=== PATIENT | female | born 1960 | race Hispanic/Latino ===

== ENCOUNTER 2018-06-24 06:37 | Day surgery (SDC) | payer OTHER ==
[2018-06-21 10:53] VITALS: BP 146/82
[2018-06-21 10:55] LABS: APPEARANCE,URINE Clear (CLEAR); BILIRUBIN,URINE Negative (NEGATIVE); COLOR,URINE Yellow (YELLOW); GLUCOSE, URINE (UA) Negative (NEGATIVE); KETONES,URINE Negative (NEGATIVE); LEUKOCYTE ESTERASE ,URINE Negative (NEGATIVE); NITRATE,URINE Negative (NEGATIVE); OCCULT BLOOD,URINE Negative (NEGATIVE); PROTEIN,URINE Negative (NEGATIVE); UROBILINOGEN,URINE 0.2 mg/dL (0.2-1.0)
[2018-06-21 10:58] LABS: BASOPHILS % (AUTO) 0.6 % (0.0-5.0); EOSINOPHILS % (AUTO) 2.2 % (0.0-8.0); HEMATOCRIT 40.7 % (36-48); LYMPHOCYTES % (AUTO) 25.8 % (21.0-51.0); MEAN CORPUSCULAR HEMOGLOBIN 26.7 pg (27.0-33.0); MEAN CORPUSCULAR HGB CONC 32.2 g/dL (32.0-36.0); MEAN CORPUSCULAR VOLUME 82.9 fL (79-99); MONOCYTES % (AUTO) 8.7 % (3.0-13.0); NEUTROPHILS % (AUTO) 62.7 % (40.0-77.0); NUCLEATED RED BLOOD CELLS 0.1 % (0.0-0.19); PLATELET COUNT (AUTO) 240 K/uL (130-400); RED CELL DISTRIBUTION WIDTH 26.2 % (11.0-15.5); WHITE BLOOD COUNT (AUTO) 4.2 K/uL (4.8-10.8)
[2018-06-24] VITALS (13 sets, daily range): BP systolic 92–129; BP diastolic 57–73
[~2018-06-24] VITALS: Ht 154.9 cm; Wt 50.3 kg
[~2018-06-24 06:37] MED LIST: ESTR30GE2 TD; LACT1CAP77 PO; MULT-1258 PO
[2018-06-24] MEDS ORDERED: LACTATED RINGERS 1000ML 1,000 ML IV ONE (06:56)
[2018-06-24] MEDS ORDERED: CETI-101 PO (07:21)
[2018-06-24] MEDS ORDERED: DEXAMETHASONE SOD PHOSPHATE 10MG/ML 1ML VIAL ONE (08:15)
[2018-06-24] MEDS ORDERED: LIDOCAINE PF 2% 5ML ABBOJECT ONE (08:15)
[2018-06-24] MEDS ORDERED: ONDANSETRON HCL 4 MG/2 ML VIAL ONE (08:15)
[2018-06-24] MEDS ORDERED: MIDAZOLAM HCL 1 MG/ML 2ML VIAL ONE ×2 (08:16→08:18)
[2018-06-24] MEDS ORDERED: PROPOFOL 10 MG/ML 20ML VIAL IV ONE (08:16)
[2018-06-24] MEDS ORDERED: FENTANYL CITRATE PF 50 MCG/1 ML 2ML VIAL ONE (08:19)
[2018-06-24] MEDS ORDERED: ROCURONIUM 10MG/1ML SYR 10 MG/ML ML ONE (08:37)
[2018-06-24] MEDS ORDERED: BUPIVACAINE/PF 0.25% 30ML VIAL IJ ONE (08:46)
[2018-06-24] MEDS ORDERED: NEOSTIGMINE 5MG/5ML SYR IV ONE (09:06)
[2018-06-24] MEDS ORDERED: GLYCOPYRROLATE 1 MG/5 ML SYRINGE ONE (09:06)
== END 2018-06-24 10:47 | disposition home or self-care (01) ==
LOC: DAH 06:37
PROVIDERS: ATTEND Surgery
DX: K40.90 Unilateral inguinal hernia, without obstruction or gangrene, not specified as recurrent (principal); Z90.710 Acquired absence of both cervix and uterus; Z98.890 Other specified postprocedural states
CPT/HCPCS: 36415; 49505; 81003; 85025; A4450; A4452; J1100; J2001; J2250 ×2; J2405; J2704; J2710; J3010; J3490 ×2; J7120

== ENCOUNTER 2018-07-13 19:18 | Emergency (ER) | payer OTHER ==
[~2018-07-13 19:18] MED LIST changes: +CETI-101 PO
[2018-07-13] MEDS ORDERED: FAMOTIDINE 20MG TAB 20 MG TAB ONE (19:53)
[2018-07-13] MEDS ORDERED: DEXAMETHASONE SOD PHOSPHATE 10MG/ML 1ML VIAL ONE (19:53)
[2018-07-13] MEDS ORDERED: DIPHENHYDRAMINE HCL 25 MG CAPSULE ONE (19:53)
== END 2018-07-13 20:42 | disposition home or self-care (01) ==
LOC: EDH 19:18
DX: L50.9 Urticaria, unspecified (principal)
CPT/HCPCS: 96372; 99283; J1100; Q0163

== ENCOUNTER 2020-01-22 21:03 | Emergency (ER) | payer OTHER ==
[~2020-01-22 21:03] MED LIST changes: -CETI-101 PO; +CETI-109 PO
[2020-01-22 21:43] LABS: APPEARANCE,URINE Clear (CLEAR); BILIRUBIN,URINE Negative (NEGATIVE); COLOR,URINE Yellow (YELLOW); GLUCOSE, URINE (UA) Negative (NEGATIVE); KETONES,URINE Negative (NEGATIVE); LEUKOCYTE ESTERASE ,URINE Negative (NEGATIVE); NITRATE,URINE Negative (NEGATIVE); OCCULT BLOOD,URINE Negative (NEGATIVE); PH,URINE 6.5 (5.0-8.0); PROTEIN,URINE Negative (NEGATIVE); UROBILINOGEN,URINE 0.2 mg/dL (0.2-1.0)
[2020-01-22 21:47] LABS: BASOPHILS % (AUTO) 0.7 % (0.0-5.0); EOSINOPHILS % (AUTO) 3.6 % (0.0-8.0); HEMATOCRIT 44.9 % (36-48); MEAN CORPUSCULAR HEMOGLOBIN 29.1 pg (27.0-33.0); MEAN CORPUSCULAR HGB CONC 33.9 g/dL (32.0-36.0); MEAN CORPUSCULAR VOLUME 85.9 fL (79-99); MONOCYTES % (AUTO) 13.6 % (3.0-13.0); NEUTROPHILS % (AUTO) 53.9 % (40.0-77.0); PLATELET COUNT (AUTO) 249 K/uL (130-400); RED BLOOD CELL COUNT(AUTO) 5.23 MIL/uL (4.00-5.50); RED CELL DISTRIBUTION WIDTH 14.2 % (11.0-15.5); WHITE BLOOD COUNT (AUTO) 4.5 K/uL (4.8-10.8)
[2020-01-22 21:58] LABS: INR 1.03 (0.85-1.15); PARTIAL THROMBOPLASTIN TIME 28.2 SEC (26.3-35.5); PROTHROMBIN TIME 11.1 SEC (9.6-11.6)
[2020-01-22 22:02] LABS: POTASSIUM 3.9 mmol/L (3.5-5.1)
[2020-01-22 22:07] LABS: ALBUMIN 3.8 g/dL (3.5-5.0); BILIRUBIN,TOTAL 0.5 mg/dL (0.2-1.0); TOTAL PROTEIN, SERUM 7.9 g/dL (6.0-8.3)
[2020-01-22] MEDS ORDERED: FAMOTIDINE 20MG TAB 20 MG TAB ONE (22:14)
== END 2020-01-22 22:32 | disposition home or self-care (01) ==
LOC: EDH 21:03
DX: K85.90 Acute pancreatitis without necrosis or infection, unspecified (principal); R25.1 Tremor, unspecified; R03.0 Elevated blood-pressure reading, without diagnosis of hypertension; M19.90 Unspecified osteoarthritis, unspecified site
CPT/HCPCS: 36415; 80053; 81003; 82150; 82550; 83690; 85025; 85610; 85730; 93005

== ENCOUNTER 2020-10-04 10:32 | Emergency (ER) | payer OTHER ==
[~2020-10-04 10:32] MED LIST changes: -CETI-109 PO; +CETI-89 PO
[2020-10-04 11:09] LABS: BASOPHILS % (AUTO) 0.5 % (0.0-5.0); EOSINOPHILS % (AUTO) 0.7 % (0.0-8.0); HEMATOCRIT 44.9 % (36-48); LYMPHOCYTES % (AUTO) 15.3 % (21.0-51.0); MEAN CORPUSCULAR HEMOGLOBIN 30.5 pg (27.0-33.0); MEAN CORPUSCULAR HGB CONC 34.1 g/dL (32.0-36.0); MEAN CORPUSCULAR VOLUME 89.6 fL (79-99); MONOCYTES % (AUTO) 7.8 % (3.0-13.0); NEUTROPHILS % (AUTO) 75.2 % (40.0-77.0); PLATELET COUNT (AUTO) 274 K/uL (130-400); RED BLOOD CELL COUNT(AUTO) 5.01 MIL/uL (4.00-5.50); RED CELL DISTRIBUTION WIDTH 13.1 % (11.0-15.5); WHITE BLOOD COUNT (AUTO) 5.5 K/uL (4.8-10.8)
[2020-10-04 11:16] LABS: CREATININE 0.8 mg/dL (0.5-1.5); POTASSIUM 3.7 mmol/L (3.5-5.1)
[2020-10-04 11:20] LABS: ALBUMIN 3.8 g/dL (3.5-5.0); BILIRUBIN,TOTAL 0.6 mg/dL (0.2-1.0); TOTAL PROTEIN, SERUM 8.4 g/dL (6.0-8.3)
[2020-10-04] MEDS ORDERED: MECLIZINE HCL 25 MG TABLET ONE (12:11)
== END 2020-10-04 15:02 | disposition home or self-care (01) ==
LOC: EDH 10:32
DX: R42 Dizziness and giddiness (principal); M19.90 Unspecified osteoarthritis, unspecified site; Z90.49 Acquired absence of other specified parts of digestive tract; Z90.710 Acquired absence of both cervix and uterus
CPT/HCPCS: 36415; 70450; 71045; 80053; 82948; 84484; 85025; 93005

== ENCOUNTER 2021-02-10 04:40 | Emergency (ER) | payer BC, OTHER ==
[2021-02-10 04:54] LABS: APPEARANCE,URINE Clear (CLEAR); BILIRUBIN,URINE Negative (NEGATIVE); COLOR,URINE Yellow (YELLOW); GLUCOSE, URINE (UA) Negative (NEGATIVE); KETONES,URINE Trace mg/dL (NEGATIVE); LEUKOCYTE ESTERASE ,URINE Negative (NEGATIVE); NITRATE,URINE Negative (NEGATIVE); OCCULT BLOOD,URINE Negative (NEGATIVE); PROTEIN,URINE Negative (NEGATIVE); UROBILINOGEN,URINE 0.2 mg/dL (0.2-1.0)
[2021-02-10] MEDS ORDERED: HYDROXYZINE HCL 25 MG TABLET ONE (05:48)
== END 2021-02-10 06:41 | disposition home or self-care (01) ==
LOC: EDH 04:40
DX: F41.8 Other specified anxiety disorders (principal); R10.30 Lower abdominal pain, unspecified; R19.7 Diarrhea, unspecified; M19.90 Unspecified osteoarthritis, unspecified site; Z90.710 Acquired absence of both cervix and uterus
CPT/HCPCS: 81003

== ENCOUNTER 2021-06-23 05:26 | Emergency (ER) | payer BC ==
[~2021-06-23] VITALS: Ht 149.9 cm; Wt 51.7 kg
[2021-06-23] MEDS ORDERED: ONDANSETRON 4MG INJ ONE (06:48)
[2021-06-23] MEDS ORDERED: PANTOPRAZOLE 40 MG/VIAL ONE (06:48)
[2021-06-23] MEDS ORDERED: FAMOTIDINE 20MG VIAL IV ONE (06:48)
[2021-06-23 07:00] LABS: BASOPHILS % (AUTO) 0.3 % (0.0-5.0); EOSINOPHILS % (AUTO) 0.9 % (0.0-8.0); HEMATOCRIT 42.3 % (36-48); LYMPHOCYTES % (AUTO) 17.5 % (21.0-51.0); MEAN CORPUSCULAR HEMOGLOBIN 30.2 pg (27.0-33.0); MEAN CORPUSCULAR HGB CONC 32.6 g/dL (32.0-36.0); MEAN CORPUSCULAR VOLUME 92.6 fL (79-99); MONOCYTES % (AUTO) 8.3 % (3.0-13.0); NEUTROPHILS % (AUTO) 72.4 % (40.0-77.0); PLATELET COUNT (AUTO) 287 K/uL (130-400); RED BLOOD CELL COUNT(AUTO) 4.57 MIL/uL (4.00-5.50); WHITE BLOOD COUNT (AUTO) 3.3 K/uL (4.8-10.8)
[2021-06-23] MEDS ORDERED: ONDANSETRON 4MG INJ IVP SCH (07:06)
[2021-06-23] MEDS ORDERED: 0.9%NACL 1000ML 1,000 ML IV SCH (07:06)
[2021-06-23] MEDS ORDERED: PANTOPRAZOLE 40 MG/VIAL IVP SCH (07:06)
[2021-06-23] MEDS ORDERED: 0.9%NACL 1000ML 1,000 ML IV ONE (07:06)
[2021-06-23 07:07] LABS: CREATININE 0.8 mg/dL (0.5-1.5); POTASSIUM 4.2 mmol/L (3.5-5.1)
[2021-06-23] MEDS ORDERED: FAMOTIDINE 20MG VIAL IV SCH (07:07)
[2021-06-23 07:11] LABS: ALBUMIN 3.7 g/dL (3.5-5.0); BILIRUBIN,TOTAL 0.4 mg/dL (0.2-1.0)
[2021-06-23] MEDS ORDERED: PANT40TA PO (07:56)
[2021-06-23] MEDS ORDERED: ONDA4TAB10 PO (07:56)
[2021-06-23] MEDS ORDERED: METO-296 PO (07:56)
[2021-06-23] MEDS ORDERED: DICY20TA2 PO (07:56)
[2021-06-23 07:57] VITALS: BP 125/70
== END 2021-06-23 08:09 | disposition home or self-care (01) ==
LOC: EDH 05:26
DX: K29.70 Gastritis, unspecified, without bleeding (principal); E86.9 Volume depletion, unspecified; Z79.899 Other long term (current) drug therapy
CPT/HCPCS: 36415; 80053; 83690; 84484; 85025; 93005; 96361; 96374; 96375; 99284; C9113; J2405; J7030; J3490

== ENCOUNTER 2021-07-19 14:09 | Observation (INO) | payer BC ==
[~2021-07-19] VITALS: Ht 149.9 cm; Wt 44.7 kg
[~2021-07-19 14:09] MED LIST changes: +DICY20TA2 PO; +METO-296 PO; +ONDA4TAB10 PO; +PANT40TA PO
[2021-07-19 14:41] LABS: BASOPHILS % (AUTO) 0.4 % (0.0-5.0); EOSINOPHILS % (AUTO) 1.2 % (0.0-8.0); HEMATOCRIT 41.4 % (36-48); LYMPHOCYTES % (AUTO) 20.5 % (21.0-51.0); MEAN CORPUSCULAR HEMOGLOBIN 30.5 pg (27.0-33.0); MEAN CORPUSCULAR HGB CONC 33.1 g/dL (32.0-36.0); MEAN CORPUSCULAR VOLUME 92.2 fL (79-99); NEUTROPHILS % (AUTO) 66.7 % (40.0-77.0); PLATELET COUNT (AUTO) 252 K/uL (130-400); RED BLOOD CELL COUNT(AUTO) 4.49 MIL/uL (4.00-5.50); RED CELL DISTRIBUTION WIDTH 12.6 % (11.0-15.5); WHITE BLOOD COUNT (AUTO) 4.8 K/uL (4.8-10.8)
[2021-07-19 14:46] LABS: APPEARANCE,URINE Clear (CLEAR); BILIRUBIN,URINE Negative (NEGATIVE); COLOR,URINE Yellow (YELLOW); GLUCOSE, URINE (UA) Negative (NEGATIVE); KETONES,URINE Negative (NEGATIVE); LEUKOCYTE ESTERASE ,URINE Negative (NEGATIVE); NITRATE,URINE Negative (NEGATIVE); OCCULT BLOOD,URINE Negative (NEGATIVE); PROTEIN,URINE Negative (NEGATIVE); UROBILINOGEN,URINE 0.2 mg/dL (0.2-1.0)
[2021-07-19 14:57] LABS: CARBON DIOXIDE 33 mmol/L (21-32); CHLORIDE 102 mmol/L (101-111); CREATININE 0.9 mg/dL (0.5-1.5); GLOMERULAR FILTR. RATE CALC 67 mL/min (>60); GLUCOSE,RANDOM 95 mg/dL (70-105); POTASSIUM 3.4 mmol/L (3.5-5.1); SODIUM SERUM 141 mmol/L (136-145); UREA NITROGEN, BLOOD 16 mg/dL (7-18)
[2021-07-19 15:01] LABS: ALANINE AMINOTRANSFERASE 42 U/L (12-78); ALBUMIN 3.9 g/dL (3.5-5.0); ASPARTATE AMINOTRANSFERASE 39 U/L (10-37); BILIRUBIN,TOTAL 0.4 mg/dL (0.2-1.0); TOTAL PROTEIN, SERUM 8.4 g/dL (6.0-8.3)
[2021-07-19 15:05] LABS: CRP QUANTITATIVE < 2.00 mg/L (0.00-9.0)
[2021-07-19 15:11] LABS: B-TYPE NATRIURETIC PEPTIDE 23 pg/mL (0-100)
[2021-07-19] MEDS ORDERED: POTASSIUM BICARB/CIT AC 25 MEQ TABLET.EFF ONE (15:13)
[2021-07-19] MEDS ORDERED: LORAZEPAM 1 MG TABLET ONE (15:23)
[2021-07-19] MEDS ORDERED: LORAZEPAM 2 MG/ML 1 ML VIAL IVP ONE (15:30)
[2021-07-19] MEDS ORDERED: LORAZEPAM 1 MG TABLET PO ONE (16:55)
[2021-07-19] MEDS ORDERED: POTASSIUM BICARB/CIT AC 25 MEQ TABLET.EFF PO ONE (16:55)
[2021-07-19] MEDS ORDERED: ONDANSETRON 4MG TABLET PO PRN (18:00)
[2021-07-19] MEDS ORDERED: ACETAMINOPHEN 325 MG TAB PO PRN (18:00)
[2021-07-20] VITALS (9 sets, daily range): BP systolic 104–142; BP diastolic 63–82
[2021-07-20] MEDS ORDERED: ESTR30GE2 TD (01:00)
[2021-07-20 07:55] LABS: BASOPHILS % (AUTO) 0.5 % (0.0-5.0); EOSINOPHILS % (AUTO) 2.2 % (0.0-8.0); HEMATOCRIT 41.9 % (36-48); LYMPHOCYTES % (AUTO) 24.5 % (21.0-51.0); MEAN CORPUSCULAR HEMOGLOBIN 30.8 pg (27.0-33.0); MEAN CORPUSCULAR HGB CONC 33.4 g/dL (32.0-36.0); MEAN CORPUSCULAR VOLUME 92.1 fL (79-99); MONOCYTES % (AUTO) 10.9 % (3.0-13.0); NEUTROPHILS % (AUTO) 61.6 % (40.0-77.0); PLATELET COUNT (AUTO) 251 K/uL (130-400); RED BLOOD CELL COUNT(AUTO) 4.55 MIL/uL (4.00-5.50); RED CELL DISTRIBUTION WIDTH 12.8 % (11.0-15.5); WHITE BLOOD COUNT (AUTO) 3.7 K/uL (4.8-10.8)
[2021-07-20 08:38] LABS: CREATININE 0.8 mg/dL (0.5-1.5); MAGNESIUM 2.1 mg/dL (1.80-2.40); POTASSIUM 4.5 mmol/L (3.5-5.1)
[2021-07-20] MEDS ORDERED: GADOTERATE MEGLUMINE 5 MMOL/10 ML VIAL IV ONE (12:22)
[2021-07-20] MEDS ORDERED: ALPRAZOLAM 0.5 MG TABLET PO PRN (17:00)
[2021-07-21] VITALS: BP 110/74
[2021-07-21 05:23] LABS: HEMATOCRIT 39.7 % (36-48); MEAN CORPUSCULAR HEMOGLOBIN 30.3 pg (27.0-33.0); MEAN CORPUSCULAR HGB CONC 33.2 g/dL (32.0-36.0); MEAN CORPUSCULAR VOLUME 91.3 fL (79-99); RED BLOOD CELL COUNT(AUTO) 4.35 MIL/uL (4.00-5.50); RED CELL DISTRIBUTION WIDTH 12.7 % (11.0-15.5); WHITE BLOOD COUNT (AUTO) 3.8 K/uL (4.8-10.8)
[2021-07-21 05:31] LABS: CREATININE 0.8 mg/dL (0.5-1.5); MAGNESIUM 1.8 mg/dL (1.80-2.40); POTASSIUM 3.9 mmol/L (3.5-5.1)
[2021-07-21] MEDS ORDERED: DIPHENHYDRAMINE HCL 25 MG CAPSULE PO SCH (09:00)
[2021-07-21 09:05] VITALS: BP 110/70
[2021-07-21 11:13] VITALS: BP 106/67
== END 2021-07-21 14:23 | disposition home or self-care (01) ==
LOC: EDH 14:09 → EDHIP 16:25 → INTOOBSV 16:25 → 3BH 07-20 06:26
PROVIDERS: ADMIT Internal Medicine Infectious Disease; ATTEND Internal Medicine Infectious Disease
DX: I10 Essential (primary) hypertension (principal); R42 Dizziness and giddiness; E87.6 Hypokalemia; R53.81 Other malaise; Z90.710 Acquired absence of both cervix and uterus; Z79.899 Other long term (current) drug therapy; Z98.890 Other specified postprocedural states
CPT/HCPCS: 36415 ×3; 70450; 70544; 70547; 70553; 71045; 80048 ×2; 80053; 81003; 83735 ×2; 83880; 84484; 85025 ×2; 85027; 86140; 93005; 97039; 97116; 97161; 99285; A9575; G0378; Q0163

== ENCOUNTER 2022-03-22 05:58 | Emergency (ER) | payer BC ==
[~2022-03-22] VITALS: Ht 149.9 cm; Wt 46.3 kg
[~2022-03-22 05:58] MED LIST changes: -DICY20TA2 PO; -LACT1CAP77 PO; -METO-296 PO; -ONDA4TAB10 PO; -PANT40TA PO
[2022-03-22 06:46] VITALS: BP 124/60
[2022-03-22 06:51] LABS: BASOPHILS % (AUTO) 0.2 % (0.0-5.0); EOSINOPHILS % (AUTO) 0.3 % (0.0-8.0); HEMATOCRIT 45.2 % (36-48); LYMPHOCYTES % (AUTO) 5.5 % (21.0-51.0); MEAN CORPUSCULAR HEMOGLOBIN 30.2 pg (27.0-33.0); MEAN CORPUSCULAR HGB CONC 33.2 g/dL (32.0-36.0); MEAN CORPUSCULAR VOLUME 90.9 fL (79-99); NEUTROPHILS % (AUTO) 88.7 % (40.0-77.0); PLATELET COUNT (AUTO) 261 K/uL (130-400); RED BLOOD CELL COUNT(AUTO) 4.97 MIL/uL (4.00-5.50); WHITE BLOOD COUNT (AUTO) 11.8 K/uL (4.8-10.8)
[2022-03-22 06:57] LABS: APPEARANCE,URINE CLEAR (CLEAR); BILIRUBIN,URINE NEGATIVE (NEGATIVE); COLOR,URINE YELLOW (YELLOW); GLUCOSE, URINE (UA) NEGATIVE (NEGATIVE); KETONES,URINE NEGATIVE (NEGATIVE); LEUKOCYTE ESTERASE ,URINE NEGATIVE (NEGATIVE); NITRATE,URINE NEGATIVE (NEGATIVE); OCCULT BLOOD,URINE NEGATIVE (NEGATIVE); PROTEIN,URINE NEGATIVE (NEGATIVE); UROBILINOGEN,URINE 0.2 mg/dL (0.2-1.0)
[2022-03-22] MEDS ORDERED: 0.9%NACL 1000ML 1,000 ML IV SCH (07:00)
[2022-03-22] MEDS ORDERED: ONDANSETRON 4MG INJ IVP ONE (07:00)
[2022-03-22 07:08] LABS: ALBUMIN 3.9 g/dL (3.5-5.0); CREATININE 0.8 mg/dL (0.5-1.5); POTASSIUM 4.2 mmol/L (3.5-5.1)
[2022-03-22] MEDS ORDERED: ONDA-104 PO (08:44)
[2022-03-22] MEDS ORDERED: LOPE2CAP PO (08:44)
== END 2022-03-22 08:51 | disposition home or self-care (01) ==
LOC: EDH 05:58
DX: E86.9 Volume depletion, unspecified (principal); R19.7 Diarrhea, unspecified; R10.9 Unspecified abdominal pain
CPT/HCPCS: 99284; 96374; 80053; 83690; 85025; 81003; 36415; J7030; J2405

== ENCOUNTER 2023-02-27 23:13 | Emergency (ER) | payer BC ==
[~2023-02-27] VITALS: Ht 149.9 cm; Wt 47.2 kg
[~2023-02-27 23:13] MED LIST changes: +LOPE2CAP PO; +ONDA-104 PO
[2023-02-28] MEDS ORDERED: DIPHENOXYLATE HCL/ATROPINE 2.5/0.025 MG TAB PO ONE
[2023-02-28 00:42] VITALS: BP 105/60
[2023-02-28] MEDS ORDERED: DIPH1TAB PO (00:43)
== END 2023-02-28 00:54 | disposition home or self-care (01) ==
LOC: EDH 23:13
DX: R19.7 Diarrhea, unspecified (principal)

== ENCOUNTER → 2024-01-29 | Outpatient (CLI) | payer OTHER ==
[~2024-01-29] MED LIST changes: +DIPH1TAB PO
== END | disposition home or self-care (01) ==
LOC: OIH 08:17
PROVIDERS: ATTEND Family Medicine
DX: Z13.6 Encounter for screening for cardiovascular disorders (principal)
CPT/HCPCS: 75571

== ENCOUNTER 2024-03-29 02:34 | Emergency (ER) | payer BC, OTHER ==
[~2024-03-29] VITALS: Ht 149.9 cm; Wt 49.4 kg
[2024-03-29 04:10] LABS: BASOPHILS # (AUTO) 0.05 K/uL (0.00-0.20); BASOPHILS % (AUTO) 1.1 % (0.0-5.0); EOSINOPHILS # (AUTO) 0.24 K/uL (0.00-0.70); EOSINOPHILS % (AUTO) 5.1 % (0.0-8.0); HEMATOCRIT 41.6 % (36-48); IMMATURE GRANULOCYTE ABSOLUTE 0.02 K/uL (0-1); LYMPHOCYTES # (AUTO) 0.8 K/uL (1.0-4.8); LYMPHOCYTES % (AUTO) 16.9 % (21.0-51.0); MEAN CORPUSCULAR HEMOGLOBIN 30.2 pg (27.0-33.0); MEAN CORPUSCULAR HGB CONC 33.4 g/dL (32.0-36.0); MEAN CORPUSCULAR VOLUME 90.2 fL (79-99); MONOCYTES # (AUTO) 0.5 K/uL (0.1-1.0); MONOCYTES % (AUTO) 9.5 % (3.0-13.0); NEUTROPHILS # (AUTO) 3.2 K/uL (1.8-7.7); PLATELET COUNT (AUTO) 281 K/uL (130-400); RED BLOOD CELL COUNT(AUTO) 4.61 MIL/uL (4.00-5.50); RED CELL DISTRIBUTION WIDTH 13.4 % (11.0-15.5); WHITE BLOOD COUNT (AUTO) 4.7 K/uL (4.8-10.8)
[2024-03-29 04:22] LABS: CREATININE 0.7 mg/dL (0.5-1.0); POTASSIUM 3.8 mmol/L (3.5-5.1)
[2024-03-29 04:27] LABS: ALBUMIN 3.5 g/dL (3.5-5.0); BILIRUBIN,TOTAL 0.6 mg/dL (0.2-1.0); TOTAL PROTEIN, SERUM 7.7 g/dL (6.0-8.3)
[2024-03-29 05:18] VITALS: BP 118/72; PULSE 64; RESP 16; O2SAT 99
== END 2024-03-29 05:32 | disposition home or self-care (01) ==
LOC: EDH 02:34
DX: K08.89 Other specified disorders of teeth and supporting structures (principal); Z79.899 Other long term (current) drug therapy; Z98.890 Other specified postprocedural states
CPT/HCPCS: 36415; 70220; 80053; 85025

== ENCOUNTER 2024-06-15 21:08 | Emergency (ER) | payer BC, OTHER ==
[~2024-06-15] VITALS: Ht 149.9 cm; Wt 49.9 kg
[2024-06-15] MEDS ORDERED: DICL20GE TP (21:44)
[2024-06-15 21:51] VITALS: BP 142/70; PULSE 70; RESP 16; TEMP 98.3; O2SAT 98
[2024-06-15] MEDS: NAPROXEN 500 MG TABLET PO ONE (22:00)
== END 2024-06-15 22:05 | disposition home or self-care (01) ==
LOC: EDH 21:08
DX: S86.912A Strain of unspecified muscle(s) and tendon(s) at lower leg level, left leg, initial encounter (principal); Z79.899 Other long term (current) drug therapy; Z98.890 Other specified postprocedural states; X58.XXXA Exposure to other specified factors, initial encounter; Y93.89 Activity, other specified; Y92.89 Other specified places as the place of occurrence of the external cause; Y99.8 Other external cause status
CPT/HCPCS: 29505; 73562

== ENCOUNTER 2024-07-06 22:02 | Emergency (ER) | payer OTHER ==
[~2024-07-06] VITALS: Ht 149.9 cm; Wt 50.8 kg
[~2024-07-06 22:02] MED LIST changes: +DICL20GE TP
[2024-07-06 22:13] VITALS: TEMP 98.4
[2024-07-06 22:25] LABS: APPEARANCE,URINE CLEAR (CLEAR); BILIRUBIN,URINE NEGATIVE (NEGATIVE); COLOR,URINE LIGHT-YELLOW (YELLOW); GLUCOSE, URINE (UA) NEGATIVE (NEGATIVE); KETONES,URINE NEGATIVE (NEGATIVE); LEUKOCYTE ESTERASE ,URINE NEGATIVE Leu/uL (NEGATIVE); NITRATE,URINE NEGATIVE (NEGATIVE); OCCULT BLOOD,URINE NEGATIVE (NEGATIVE); PH,URINE 7.5 (5.0-8.0); PROTEIN,URINE NEGATIVE (NEGATIVE); UROBILINOGEN,URINE 0.2 mg/dL (0.2-1.0)
[2024-07-06] MEDS: ondanSETRON 4MG INJ IVP ONE (22:26)
[2024-07-06] MEDS: ketOROlac 30MG VIAL (30MG/ML) IVP ONE (22:26)
[2024-07-06] MEDS: FAMOTIDINE 20MG VIAL IV ONE (22:27)
[2024-07-06 22:35] LABS: ADD UA MICROSCOPIC NO
[2024-07-06 22:44] LABS: BASOPHILS # (AUTO) 0.02 K/uL (0.00-0.20); BASOPHILS % (AUTO) 0.2 % (0.0-5.0); EOSINOPHILS # (AUTO) 0.17 K/uL (0.00-0.70); EOSINOPHILS % (AUTO) 1.9 % (0.0-8.0); HEMATOCRIT 39.1 % (36-48); IMMATURE GRANULOCYTE ABSOLUTE 0.04 K/uL (0-1); LYMPHOCYTES % (AUTO) 10.8 % (21.0-51.0); MEAN CORPUSCULAR HGB CONC 34.5 g/dL (32.0-36.0); MEAN CORPUSCULAR VOLUME 89.9 fL (79-99); MONOCYTES # (AUTO) 0.6 K/uL (0.1-1.0); MONOCYTES % (AUTO) 6.9 % (3.0-13.0); NEUTROPHILS # (AUTO) 7.1 K/uL (1.8-7.7); NEUTROPHILS % (AUTO) 79.7 % (40.0-77.0); PLATELET COUNT (AUTO) 296 K/uL (130-400); RED BLOOD CELL COUNT(AUTO) 4.35 MIL/uL (4.00-5.50); RED CELL DISTRIBUTION WIDTH 12.7 % (11.0-15.5); WHITE BLOOD COUNT (AUTO) 8.9 K/uL (4.8-10.8)
[2024-07-06 22:53] LABS: CREATININE 0.8 mg/dL (0.5-1.0); POTASSIUM 3.5 mmol/L (3.5-5.1)
[2024-07-06] MEDS: 0.9%NACL 1000ML 1,000 ML IV ONE (23:17)
[2024-07-06 23:33] VITALS: BP 124/68; PULSE 62; RESP 18; O2SAT 100
== END 2024-07-06 23:33 | disposition home or self-care (01) ==
LOC: EDH 22:02
DX: A08.4 Viral intestinal infection, unspecified (principal); R19.7 Diarrhea, unspecified; Z79.1 Long term (current) use of non-steroidal anti-inflammatories (NSAID); Z98.890 Other specified postprocedural states
CPT/HCPCS: 99284; 96374; 96375; 80048; 85025; 81003; 36415; J3490; J7030; J2405; J1885

== ENCOUNTER 2025-06-30 08:18 | Emergency (ER) | payer OTHER ==
[~2025-06-30] VITALS: Ht 149.9 cm; Wt 46.7 kg
[2025-06-30] MEDS ORDERED: NAPR-1196 PO (10:10)
--- NOTE | 2025-06-30 10:10 | ERN ---
ED Note History of Present Illness Stated Complaint: RT SHOULDER Chief Complaint: Shoulder Injury/Pain Time Seen by MD: 08:34 Dictation: 65-year-old female with right shoulder pain worse with range of motion chronic over the past few months worsening these past few weeks. Patient does weight training but no obvious injury noted Allergies: Coded Allergies: No Known Allergies (Unverified Allergy, 03/10/13) Home Meds Active Scripts Diclofenac Sodium (Voltaren Arthritis Pain) 1 % Gel..gram., 20 GM TP BID for 10 Days, #1 TUBE Prov:LANA SLOAN MD 06/15/24 Diphenoxylate HCl/Atropine (Lomotil Tablet) 1 Each Tablet, 1 TAB PO Q6HPRN PRN for DIARRHEA for 5 Days, #10 TAB 0 Refills Prov:SUDHIR BLACK MD 02/28/23 Ondansetron HCl (Ondansetron HCl) 4 Mg Tablet, 4 MG PO TID, #15 TAB Prov:PARAS CAMPOS MD 03/22/22 Loperamide HCl (Loperamide) 2 Mg Capsule, 2 MG PO QID, #30 CAP Prov:PARAS CAMPOS MD 03/22/22 Reported Medications Estradiol (Divigel) 1 Gm Gel.packet, 1 GM TD HS 07/20/21 Cetirizine HCl (Zyrtec) 10 Mg Tablet, 10 MG PO AD, TAB 06/24/18 Multivits-Min/FA/Lycopene/Lut (Centrum Silver Tablet) 1 Each Tablet, 1 EACH PO DAILY, TAB 06/21/18 Past Medical History Past Medical History: No Pertinent History Additional Past Medical Hx: HEMORRHOIDS Surgical History: None Surgical History Other: HERNIA REPAIR X 2 Social History: Negative, Lives with family History: Not Applicable Review of System Dictation Constitutional: Negative for fever,chills, and weight loss Eyes: Negative for injury, pain,redness, and discharge ENT: Negative for injury,pain or swelling Cardiovascular: Negative for chest pain, palpitations, and edema Respiratory: Negative for shortness of breath, cough, and wheezing, Abdomen/GI: Negative for abdominal pain, nausea, vomiting, diarrhea, and constipation Back: Negative for injury and pain : Negative for injury, bleeding and discharge MS/Extremity: Per HPI Skin: Negative for rash, and discoloration Neuro: Negative for headache, weakness, numbness, tingling, and seizure Psych: Negative for suicide ideation, homicidal ideation, and hallucinations Initial Vital Sign VS Vital Signs Date Time Temp Pulse Resp B/P (MAP) Pulse Ox O2 Delivery O2 Flow Rate FiO2 06/30/25 08:20 97.9 75 20 129/69 98 Physical Exam Dictation General: awake, alert, NAD Head/Face: Normocephalic, atraumatic Eyes: PERRL, EOMI, vision at baseline ENT: oral cavity clear, TMs clear, no signs of infection Neck: Trachea midline, supple, no nuchal rigidity Cardiovascular: RRR, normal S1/S2, No MRGs, no JVD Respiratory: CTAB, no respiratory distress, No rales or wheezes Abdomen: Soft, non-tender, non-distended, normal bowel sounds, no guarding or rebound. Skin: Warm, dry, normal turgor, no rash MS/Extremity: Pulses equal, no cyanosis, neurovascular intact, FROM, pain with range of motion to the right shoulder Neuro: COAx4, GCS 15, strength 5/5, CN 2-12 intact, normal cerebellar exam, normal gait, Psych: Normal behavior, mood, and affect normal Results (Laboratory/Radiology) X-RAY Comment: Arthritis noted to right shoulder cuff ED Course ED Course Orders Procedure Category Date Status Time Shoulder Comp 2+Vws Rt RAD 06/30/25 Taken 08:24 Vital Signs Date Time Temp Pulse Resp B/P (MAP) Pulse Ox O2 Delivery O2 Flow Rate FiO2 06/30/25 08:20 97.9 75 20 129/69 98 Medical Decision Making MDM MDM: Differential diagnosis: Rationale: Tests considered and ordered secondary to shared decision making include: Previous outside records reviewed: Old ER visits. Risk of complication and/or morbidity or mortality of patient management: None Medications-Per medication reconciliation Need for hospitalization: Patient does not meet criteria for hospitalization. Need for emergency major/minor surgery: No There are no social concerns with this patient. Prescription drug management Prescriptions will include symptomatic care Patient's prior external medical records from other ER visits were reviewed by me as indicated. Prior testing and results from previous visits were reviewed. Prior tests were taken into account with medical decision making and resource utilization, independent historian/historians were used to obtain complete medical history. I independently interpreted the test that were performed, results were reviewed by me and considered findings on radiology if ordered. Medical management and examination interpretation discussions were had by me with other qualified healthcare professionals as indicated for the patient's care. 65-year-old female with right frozen shoulder stable exam an x-ray stable for outpatient follow up scheduled to see Orthopedics next month DX & DISP Disposition: Discharge Departure Impression: Primary Impression: Frozen shoulder syndrome Additional Impression: Right shoulder pain Condition: Stable Scripts Naproxen (Naproxen) 250 Mg Tablet 1 TAB PO BID for pain for 15 Days, #30 TAB 0 Refills Prov: ANURADHA CASTANEDA MD 06/30/25 Referrals: JODY WEI MD (PCP) ANURADHA CASTANEDA MD Jun 30, 2025 10:10
[2025-06-30 10:28] VITALS: BP 125/75; PULSE 59; RESP 20; TEMP 98; O2SAT 98
--- NOTE | 2025-06-30 12:42 | HMCIMG ---
SHOULDER COMP 2+VWS RT REASON: PAIN TECHNIQUE: 2 views were obtained. FINDINGS: There is no evidence of fracture or dislocation. There is no joint effusion. There is severe osteoarthropathy of the glenohumeral joint with narrowing and prominent osteophyte seen inferiorly. The soft tissues appear unremarkable. There is no evidence of a radiopaque foreign body. The visualized portion of right upper chest demonstrate no acute process IMPRESSION: No acute findings. Osteoarthropathy of the right glenohumeral joint with narrowing and prominent osteophyte.
== END 2025-06-30 10:29 | disposition home or self-care (01) ==
LOC: EDH 08:18
DX: M75.01 Adhesive capsulitis of right shoulder (principal); M25.511 Pain in right shoulder; M19.90 Unspecified osteoarthritis, unspecified site; Z79.1 Long term (current) use of non-steroidal anti-inflammatories (NSAID); Z87.19 Personal history of other diseases of the digestive system; Z98.890 Other specified postprocedural states
CPT/HCPCS: 73030; 99283

== ENCOUNTER → 2025-07-28 | Outpatient (CLI) | payer OTHER ==
[~2025-07-28] MED LIST changes: +NAPR-1196 PO
--- NOTE | 2025-07-29 02:41 | HMCIMG ---
EXAM: MR Right Upper Extremity (Shoulder), Without IV Contrast CLINICAL HISTORY: M25.511 ??? Pain in right shoulder. TECHNIQUE: Multisequence, multiplanar magnetic resonance imaging of the right shoulder performed without intravenous contrast. Series acquired: 4 ??? AX T1 ??? 5 ??? AX STIR ??? 6 ??? COR T2 ??? 7 ??? COR STIR ??? 8 ??? COR T2 PROPELLER ??? 9 ??? SAG T2 PROPELLER ??? 10 ??? SAG PD FS PROPELLER ??? 11 ??? COR STIR ??? 12 ??? COR T2 PROPELLER ??? 13 ??? AX STIR. CONTRAST: None. COMPARISON: None provided. FINDINGS TENDONS Supraspinatus: Marked tendinosis with a high-grade / subtotal partial-thickness tear involving approximately 80???90% of tendon fibres, predominantly articular-sided and interstitial. Associated retraction minimal. Infraspinatus: Mild tendinosis; no tear. Subscapularis: Mild post-traumatic tendinosis; no fibre disruption. Teres Minor: Intact. Long Head Biceps: Intact within the bicipital groove; no tendinosis or subluxation. LIGAMENTS Glenohumeral ligaments are intact without thickening or discontinuity. JOINTS Glenohumeral Joint: Moderate degenerative osteoarthritis with joint-space narrowing, articular cartilage thinning, and marginal osteophytes, including a large inferomedial humeral-head osteophyte producing mechanical abutment. Reactive subchondral cysts present. Acromioclavicular Joint / Coracoacromial Arch: Degenerative osteoarthritis with periarticular hypertrophy. Reduced acromiohumeral interval measuring 4 mm, causing secondary impingement on the myotendinous junction of the supraspinatus. Acromion type II. Coracoacromial ligament normal. BONES No acute fracture or aggressive osseous lesion. Subchondral cyst formation along the humeral head in keeping with chronic degenerative change. Bone marrow otherwise unremarkable. MUSCLES Normal bulk of rotator-cuff and periscapular muscles without atrophy. Myofascial edema adjacent to supraspinatus consistent with impingement-related reactive change. MISCELLANEOUS Large fluid collection/effusion within the subacromial???subdeltoid bursa and extending into the bicipital groove and subscapularis bursa, measuring approximately 5.6 ??? 3.0 cm, compatible with bursitis. No mass or paralabral cyst. IMPRESSION * High-grade / subtotal partial-thickness tear of the supraspinatus tendon (80???90% of fibres), predominantly articular-sided and interstitial, on a background of marked tendinosis. * Moderate glenohumeral and acromioclavicular joint osteoarthritis with a prominent inferomedial humeral-head osteophyte and subchondral cystic change. * Reduced acromiohumeral interval (4 mm) with impingement on the supraspinatus myotendinous junction. * Large subacromial???subdeltoid and subscapularis bursal effusion (5.6 ??? 3.0 cm) with fluid tracking into the bicipital groove. * Mild tendinosis of infraspinatus and subscapularis; teres minor and long-head biceps tendon intact. * Radiologic???clinical correlation: Pattern reflects combined rotator-cuff pathology, degenerative impingement, and symptomatic bursitis. /[place]
== END | disposition home or self-care (01) ==
LOC: RAH 12:47
PROVIDERS: ATTEND Orthopaedic Surgery
DX: M19.011 Primary osteoarthritis, right shoulder (principal); M25.511 Pain in right shoulder; M25.811 Other specified joint disorders, right shoulder; M67.813 Other specified disorders of tendon, right shoulder; M25.411 Effusion, right shoulder; M75.51 Bursitis of right shoulder; M62.511 Muscle wasting and atrophy, not elsewhere classified, right shoulder; M25.711 Osteophyte, right shoulder; Z87.39 Personal history of other diseases of the musculoskeletal system and connective tissue
CPT/HCPCS: 73221